=== PATIENT | male | born 1990 | race Caucasian/White ===

== ENCOUNTER 2016-10-07 12:49 | Emergency (ER) | payer OTHER ==
[2016-10-07 13:30] VITALS: BP 129/95; PULSE 111; RESP 16; TEMP 98.3; O2SAT 99
[2016-10-07] MEDS ORDERED: OXYCODONE/APAP 5/325 TAB PO ONE (13:56)
--- NOTE | 2016-10-07 15:05 | US ---
Testicular Sonography History: Left scrotal pain, pinched scrotum when getting out of car on Sunday Technique: Real-time imaging with a high frequency transducer and both color and pulsed duplex dopple r analysis. Findings: Both testes are well visualized. They are normal in size and homogeneous in echotexture. Th ere is a small left hydrocele. Left epididymis is swollen and hyperemic. The left spermatic cord is e dematous in the upper scrotum . Doppler analysis reveals symmetric normal flow in each testis. Right resistive index = 0.43 and left resistive index 0.52 incidentally noted are bilateral epididymal hea d cysts measuring 0.7 and 0.4 on the left and 0.4 on the right. Impression: 1. Left epididymitis versus contusion. Left spermatic cord contusion. 2. No evidence for testicular fracture, contusion or torsion. Results discussed with Edinson Pulido.
[2016-10-07 15:49] LABS: COLOR YELLOW; LEUKOCYTE ESTERASE,URINE 3+ (NEGATIVE); NITRITE,URINE NEGATIVE (NEGATIVE)
[2016-10-07 15:54] LABS: WBC,URINE 50-182 /hpf (0-3)
--- NOTE | 2016-10-07 15:55 | EDPHY ---
H & P Stated Complaint: left testicular pain radiating to groin HPI/ROS: Chief complaint: Left testicular pain History of present illness: This is a 26-year-old male who presents to the emergency department for evaluation treatment of left testicular pain. Patient reports approximately 5 days ago while stepping out of his car and he accidentally squeezed his testicles between his legs injuring his left testicle. Quickly thereafter he developed pain and swelling in the testicle. It has been persistent. He denies any alleviating factors. He denies other associated signs or symptoms: No fevers, no dysuria, hematuria, frequency or hesitancy, no abdominal pain, no nausea, vomiting or diarrhea. - Personal History Current Tetanus/Diphtheria Vaccine: Unsure Current Tetanus Diphtheria and Acellular Pertussis (TDAP): Unsure - Medical/Surgical History Hx Asthma: No Hx Chronic Respiratory Disease: Yes Hx Diabetes: No Hx Cardiac Disease: No Hx Renal Disease: No Hx Cirrhosis: No Hx Alcoholism: No Hx HIV/AIDS: No Hx Splenectomy or Spleen Trauma: No Other PMH: denies - Social History Smoking Status: Never smoked - Physical Exam Exam: General Appearance: Alert, nontoxic. Eyes: Pupils equal and round no injection. Respiratory: Chest is non tender, lungs are clear to auscultation. Cardiac: regular rate and rhythm Gastrointestinal: Abdomen is soft and non tender, no masses, bowel sounds normal. Genitourinary: No urethral discharge. Penis is unremarkable. The scrotum is unremarkable. Left testicle is tender and edematous. Right testicle is unremarkable. Musculoskeletal: Neck is supple and non tender. Extremities have full range of motion and are non tender. Skin: No rashes or lesions. Constitutional: Initial Vital Signs Temperature (C) 36.8 C 10/07/16 13:28 Heart Rate 111 H 10/07/16 13:28 Respiratory Rate 16 10/07/16 13:28 Blood Pressure 129/95 H 10/07/16 13:28 O2 Sat (%) 99 10/07/16 13:28 O2 Delivery Mode Room Air Allergies/Adverse Reactions: No Known Allergies Allergy (Unverified 10/07/16 13:27) Home Medications: Medication Instructions Recorded Hydrocodone/APAP 5/325 [[place] 1 tab PO Q4 #10 tab 10/07/16 5/325 (*)] Medical Decision Making - Diagnostics Imaging: Testicular ultrasound shows epididymitis versus epididymal contusion and spermatic cord contusion, no testicular fracture or torsion ED Course/Re-evaluation: Patient seen under the supervision of my secondary supervising physician Dr. Radha Swenson. Patient presents to the emergency department for evaluation treatment of left testicular pain. He states began after essentially squeezing his testicle between his legs. Ultrasound is obtained, it appears to be contusion. Urinalysis is concerning for potential infectious pathology. However I had a lengthy discussion with patient, he states he is not sexually active, denies STI risk factors. Believe this is unlikely infectious in nature. It sounds very traumatic in nature. Patient will be discharged home. Home care is discussed. He is referred to Urology for recheck. Return precautions are given. Patient voiced understanding and agreement with plan. Differential Diagnosis: Included but not limited to testicular trauma, infectious pathology, torsion - Data Points Laboratory Results: 10/07/16 15:38 Urine Color YELLOW Urine Appearance HAZY Urine pH 6.0 (5.0-7.5) Ur Specific [place] 1.008 (1.002-1.030) Urine Protein NEGATIVE (NEGATIVE) Urine Ketones 1+ H (NEGATIVE) Urine Blood 2+ H (NEGATIVE) Urine Nitrate NEGATIVE (NEGATIVE) Urine Bilirubin NEGATIVE (NEGATIVE) Urine Urobilinogen NEGATIVE EU (0.2-1.0) Ur Leukocyte Esterase 3+ H (NEGATIVE) Urine RBC 5-10 H /hpf (0-3) Urine WBC 50-182 H /hpf (0-3) Ur Epithelial Cells TRACE /lpf (NONE-1+) Ur Culture Indicated? INDICATED H (NI) Urine Glucose NEGATIVE (NEGATIVE) Medications Given: Discontinued Medications Oxycodone/Acetaminophen (Percocet 5/325) 2 tab PO EDNOW ONE Stop: 10/07/16 13:57 Last Admin: 10/07/16 14:08 Dose: 2 tab Departure - Departure Disposition: Home, Routine, Self-Care Clinical Impression: Epididymitis Condition: Good Instructions: Epididymitis (ED) Additional Instructions: Follow-up with Urology next week for recheck In regards to pain control see the following: Use ibuprofen 600 mg 3 times a day for the next 2-3 days for pain In addition You have been prescribed [place] for pain. [place] contains Tylenol, do not take extra Tylenol/acetaminophen/Apap with it. It is sedating. If symptoms worsen or new symptoms develop return to the emergency department for recheck Referrals: NONE *PRIMARY CARE P,. [Primary Care Provider] - As per Instructions Tate Joaquin MD [Medical Doctor] - As per Instructions Prescriptions: Hydrocodone/APAP 5/325 [[place] 5/325 (*)] 1 tab PO Q4 #10 tab
[2016-10-09 13:34] LABS: CHLAMYDIA AMPLIFICATION GENPRB NEGATIVE (NEGATIVE)
== END 2016-10-07 16:15 | disposition home or self-care (01) ==
DX: N45.1 Epididymitis (principal)